=== PATIENT | female | born 1990 | race Caucasian/White ===

== ENCOUNTER 2024-08-13 12:18 | Outpatient (CLI) | payer BC, OTHER, SELFPAY ==
--- NOTE | ~2024-08-13 | XR_ITS ---
TECHNIQUE: Hysterosalpingogram was performed by Dr. Vianey Munguia MD with fluoroscopic cale fitzpatrick. I was present to obtain fluoroscopic images. FINDINGS: Dye Winch Operator radiograph demonstrates an unremarkable pelvis. Fluoroscopic images demonstrates nor mal appearing endometrial cavity which has been cannulated. Upon injection of contrast, both fallopi an tubes opacify and are normal in appearance. There is free spillage bilaterally. Uterus is withou t evidence of synechia. IMPRESSION: Patent fallopian tubes. Reviewed, dictated and finalized at location A. F AIR TACTICAL OFFICER IMPRESSION: Patent fallopian tubes.
== END 2024-08-13 12:19 | disposition home or self-care (01) ==
LOC: ANHIMG 12:29
PROVIDERS: Visit Provider Obstetrics & Gynecology Gynecology
DX: Z31.49 Encounter for other procreative investigation and testing (principal)
CPT/HCPCS: 58340; 74740; Q9966

== ENCOUNTER 2025-07-06 09:59 | Outpatient (CLI) | payer BC, OTHER, SELFPAY ==
--- NOTE | ~2025-07-06 | US_ITS ---
EXAMINATION: US OB follow up DATE: 07/06/2025 10:24 INDICATION: Expected size greater than expected for estimated gestational age during early third trimester TECHNIQUE: Real-time ultrasound of the pelvis was performed. The interpreting radiologist was not present for the study. COMPARISON: None. FINDINGS: There is a single living fetus in vertex presentation. The placenta is anterior and not low-lying with caudal margin 7.9 cm from the internal cervical os. Normal cervical length of 3.9 cm. heart rate is 162r beats per minute (bpm). The amniotic fluid index is 13.8 cm, which is normal. (5th%-95%: 9.4- 22.8 cm at 28 weeks estimated gestational age). The following biometric data were obtained: BPD: 7.5 cm -> 30 weeks 0 days Head circumference: 27.6 cm -> 30 weeks 2 days Abdominal circumference: 24.5 cm -> 28 weeks 5 days Femur length: 5.6 cm -> 29 weeks 2 days These measurements are concordant. Head circumference to abdominal circumference ratio: 1.13 (normal range 0.98-1.20). Estimated weight: 1342 g (+/-) 201 g or 2 lbs. 15 oz. (+/-) 7 oz. IMPRESSION: 1. Single living fetus in vertex presentation with heart rate of 162 bpm. 2. Gestational age by ultrasound of 29 weeks 4 day(s) +/- 2 week(s) 0 day(s) with ultrasound estimated date of delivery (ALFRED) of 09/17/2025. Estimated weight is 70th percentile by Hadlock criteria when 09/26/2025 is used as the ALFRED. Please correlate with clinical information or earlier ultrasounds for most accurate ALFRED. 3. Normal amniotic fluid index of 13.8 cm. Reviewed, dictated and finalized at location A. R SUPPLY TECHNICIAN IMPRESSION: 1. Single living fetus in vertex presentation with heart rate of 162 bpm. 2. Gestational age by ultrasound of 29 weeks 4 day(s) +/- 2 week(s) 0 day(s) wi th ultrasound estimated date of delivery (ALFRED) of 09/17/2025. Estimated deborah ght is 70th percentile by Hadlock criteria when 09/26/2025 is used as the ALFRED. P lease correlate with clinical information or earlier ultrasounds for most accur ate ALFRED. 3. Normal amniotic fluid index of 13.8 cm.
== END 2025-07-06 10:00 | disposition home or self-care (01) ==
LOC: MICIMG 10:00
PROVIDERS: PCP Obstetrics & Gynecology Gynecology; Visit Provider Obstetrics & Gynecology Gynecology
DX: O36.63X0 Maternal care for excessive fetal growth, third trimester, not applicable or unspecified (principal); Z3A.00 Weeks of gestation of pregnancy not specified
CPT/HCPCS: 76816